=== PATIENT | male | born 1990 | race Two or more races ===

== ENCOUNTER 2019-09-21 16:16 | Emergency (ER) | payer MEDICAID, OTHER ==
[~2019-09-21] VITALS: Ht 170.2 cm; Wt 104.3 kg
[2019-09-21 17:11] LABS: Basophils # (auto) 0 10 ^3/uL (0-0.2); Basophils % (auto) 0.4 % (0.0-2.0); Eosinophils # (auto) 0 10 ^3/uL (0-0.8); Eosinophils % (auto) 0.2 % (0.0-7.0); Hematocrit 48.2 % (41.0-53.0); Lymphocytes # (auto) 1.5 10 ^3/uL (0.4-5.4); Mean Corpuscular Hemoglobin 29.7 pg (28.0-32.0); Mean Corpuscular Hgb Conc. 33.2 g/dL (32.0-36.0); Mean Corpuscular Volume 89.4 fL (80.0-100.0); Monocytes # (auto) 0.4 10 ^3/uL (0-1.3); Monocytes % (auto) 4.9 % (0.0-12.0); Neutrophils # (auto) 7.2 10 ^3/uL (1.6-8.6); Neutrophils % (auto) 78.5 % (37.0-80.0); Nucleated Red Blood Cells % 0.1 %; Platelet Count (auto) 271 10^3/uL (140-450); Red Blood Cells 5.39 10^6/uL (4.5-5.90); Red Cell Distribution Width 12.7 % (11.8-14.3); White Blood Cell 9.1 10^3/uL (4.4-10.8)
[2019-09-21 17:25] LABS: Alanine Aminotransferase 22 U/L (16-61); Albumin 4.4 g/dL (3.4-5.0); Anion Gap 5 (5-15); Blood Urea Nitrogen 15 mg/dL (7-18); Calcium 9.2 mg/dL (8.5-10.1); Carbon Dioxide 28 mmol/L (21-32); Chloride 104 mmol/L (98-107); Glucose 156 mg/dL (74-106); Potassium 3.5 mmol/L (3.5-5.1); Sodium 137 mmol/L (136-145)
[2019-09-21 17:29] LABS: Amphetamine Screen, Urine NEGATIVE (NEGATIVE); Barbiturate Scree,Urine NEGATIVE (NEGATIVE); Benzodiazephine Screen, Urine NEGATIVE (NEGATIVE); Cannabinoid Screen, Urine POSITIVE (NEGATIVE); Cocaine Screen, Urine NEGATIVE (NEGATIVE); Opiate Scree,Urine NEGATIVE (NEGATIVE); Phencyclidine Screen, Urine NEGATIVE (NEGATIVE)
[2019-09-21 17:30] LABS: Alkaline Phosphatase 81 U/L (45-117); Aspartate Aminotransferase 17 U/L (15-37); BUN/Creatinine Ratio 10.9; Bilirubin, Total 1.1 mg/dL (0.2-1.0); GFR African American 80 mL/min; GFR Non-African American 66 mL/min; Total Protein 8.7 g/dL (6.4-8.2)
[2019-09-21 17:57] VITALS: BP 146/91
== END 2019-09-21 17:58 | disposition home or self-care (01) ==
LOC: ER 16:16
DX: R07.89 Other chest pain (principal); F41.9 Anxiety disorder, unspecified; F10.10 Alcohol abuse, uncomplicated
CPT/HCPCS: 36415; 71046; 80053; 80307; 84484; 85025